=== PATIENT | male | born 1990 | race Two or more races ===

== ENCOUNTER 2023-10-12 13:37 | Emergency (ER) | payer OTHER ==
[~2023-10-12] VITALS: Ht 172.7 cm; Wt 73.0 kg
[2023-10-12 13:49] VITALS: BP 117/64; TEMP 98.1
[2023-10-12] MEDS ORDERED: KETOROLAC TROMETHAMINE 15 MG/ML VIAL IM ONE (14:00)
[2023-10-12] MEDS ORDERED: KETOROLAC TROMETHAMINE 15 MG/ML VIAL ONE (14:00)
[2023-10-12] MEDS ORDERED: IBUP-1955 PO (15:48)
[2023-10-12] MEDS ORDERED: HYDR-4303 PO (15:48)
[2023-10-12 16:04] VITALS: O2SAT 100
== END 2023-10-12 16:04 | disposition home or self-care (01) ==
LOC: ER 13:47
DX: S86.012A Strain of left Achilles tendon, initial encounter (principal); Z60.2 Problems related to living alone; X58.XXXA Exposure to other specified factors, initial encounter; Y93.67 Activity, basketball; Y92.89 Other specified places as the place of occurrence of the external cause; Y99.8 Other external cause status
CPT/HCPCS: 99283; 29515; J1885